=== PATIENT | male | born 1960 | race Caucasian/White ===

== ENCOUNTER 2025-01-03 10:56 | Day surgery (SDC) | payer OTHER ==
[~2025-01-03] VITALS: Ht 185.4 cm; Wt 119.7 kg
[2025-01-03] VITALS (10 sets, daily range): BP systolic 112–150; BP diastolic 70–116
[~2025-01-03 10:56] MED LIST: ALBU90OI INH; Aspir 8181 MG PO; BUPRENORPHIN-N1 EAC1 SL; IPRAT-ALBUT 0.5-3 ML IH; LISI20 PO; METF500 PO; NALOXONE H0.4 MG/1 M IM; NITR.4SL SL; STIOLTO RESPIMAT4 G1 IH; TIOT18 INH; TRAZ100 PO; VITAMIN D325 MC3 PO
[2025-01-03] MEDS ORDERED: Heparin Sodium 1000 Units/ML 10ML MDV ONE (13:27)
[2025-01-03] MEDS ORDERED: Verapamil HCL 2.5 MG/ML 2ML Injection ONE (13:27)
[2025-01-03] MEDS ORDERED: NS 250 ML IV ONE (13:28)
[2025-01-03] MEDS ORDERED: NS 1,000 ML IV ONE (13:28)
[2025-01-03] MEDS ORDERED: Nitroglycerin 2 MG/20 ML BTL ONE (13:28)
[2025-01-03] MEDS ORDERED: Aspirin 81 MG Chew ONE (13:29)
[2025-01-03] MEDS ORDERED: FentaNYL Citrate 50 MCG/ML 2 ML Injection ONE (13:39)
[2025-01-03] MEDS ORDERED: Midazolam HCl 1MG / ML 2ML Vial ONE (13:39)
--- NOTE | 2025-01-03 14:30 | NUR ---
PT BACK TO RECOVERY ROOM FROM PROCEDURE. PT SITTING UP IN RECLINER, ALERT AND ORIENTED. TR BAND TO R WRIST. NO BLEEDING OR HEMATOMA NOTED. PT GIVEN COFFEE PER REQUEST. DR WORKMAN AT BEDSIDE TO UPDATE PT.
--- NOTE | 2025-01-03 16:04 | NUR ---
TR BAND FULLY DEFLATED. REPROT FROM PHYLLIS BABB. NO BLEEDING OR HEMATOMA FROM R RADIAL SITE.
--- NOTE | 2025-01-03 16:30 | NUR ---
PT CALLS RIDE TO LET THEM KNOW HE WILL BE READY FOR D/C SOON.
--- NOTE | 2025-01-03 16:45 | NUR ---
PT GETTING DRESSED, DEFLATED TR BAND REMAINS IN PLACE. NO BLEEDING NOTED.
--- NOTE | 2025-01-03 17:05 | NUR ---
PT VERBALIZE D/C INSTRUCIONS. TR BAND REMOVED AND CLOTH DOT PLACED. IV D/C CATHETER INTACT. PT WHEELED OUT OF HOSPTIAL AND WISHES TO SIT ON BENCH WHILE WAITING FOR RIDE. PT HAS D/C INSTRUCTIONS IN BAG.
== END 2025-01-03 17:00 | disposition home or self-care (01) ==
LOC: MHTC 10:56
DX: R94.39 Abnormal result of other cardiovascular function study (principal); R06.00 Dyspnea, unspecified; I27.22 Pulmonary hypertension due to left heart disease; D35.00 Benign neoplasm of unspecified adrenal gland; I10 Essential (primary) hypertension; E78.00 Pure hypercholesterolemia, unspecified; J44.9 Chronic obstructive pulmonary disease, unspecified; F17.210 Nicotine dependence, cigarettes, uncomplicated; E11.9 Type 2 diabetes mellitus without complications; E66.9 Obesity, unspecified; Z68.34 Body mass index [BMI] 34.0-34.9, adult; Z85.528 Personal history of other malignant neoplasm of kidney; Z79.84 Long term (current) use of oral hypoglycemic drugs; Z79.899 Other long term (current) drug therapy; Z88.5 Allergy status to narcotic agent; Z88.8 Allergy status to other drugs, medicaments and biological substances; Z90.5 Acquired absence of kidney
CPT/HCPCS: 76937; 82947; 93460; 99152; A9270; C1769; C1887; C1894; J1644; J2250; J3010; J7030; J7050; Q9967